=== PATIENT | female | born 1990 | race Caucasian/White ===

== ENCOUNTER 2020-11-11 13:50 | Emergency (ER) | payer OTHER ==
[~2020-11-11] VITALS: Ht 165.1 cm; Wt 140.6 kg
[2020-11-11] MEDS ORDERED: ACETAZOLAMIDE500 M1 PO (14:13)
== END 2020-11-11 14:23 | disposition home or self-care (01) ==
LOC: ER 14:01
DX: G93.2 Benign intracranial hypertension (principal); E66.9 Obesity, unspecified; Z86.2 Personal history of diseases of the blood and blood-forming organs and certain disorders involving the immune mechanism
CPT/HCPCS: 99282